=== PATIENT | male | born 1965 | race Caucasian/White ===

== ENCOUNTER 2019-05-14 17:31 | Emergency (ER) | payer OTHER ==
[~2019-05-14] VITALS: Ht 172.7 cm; Wt 90.7 kg
[~2019-05-14 17:31] MED LIST: DILAUDID4 MG PO; GABAPENTIN300 MG PO; LISINOPRIL-HCT1 EACH PO; METOPROLOL SUCC50 MG PO; NEURAPTINE30 ML; OXYCODONE HCL5 MG PO; PERCOCET 5-3251 EACH PO; ZOFRAN4 MG PO
--- OUTSIDE RECORDS SUMMARY | 2019-05-14 17:34 | XMS ---
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 EDustin VISIT COUNT (12 MO.) 2 SHERLYN Chen TOTAL 2 NOTE: Visits indicate total known visits. ED/UCC VISIT TRACKING (12 MO.) 05/14/2019 17:32 [facility] [place] TYPE: Emergency COMPLAINT: - SOB 04/13/2019 23:10 [facility] [place] TYPE: Emergency COMPLAINT: - ANKLE PAIN/INJURY DIAGNOSES: - Overexertion from prolonged static or awkward postures, initial encounter - Other chcf (current) drug therapy - Allergy status to sulfonamides status - Nicotine dependence, unspecified, uncomplicated - Allergy status to other antibiotic agents status - Pain in right ankle and joints of right foot - Displaced trimalleolar fracture of right lower leg, initial encounter for closed fracture - Essential (primary) hypertension INPATIENT VISIT TRACKING (12 MO.) No inpatient visits to display in this time frame [email or web address]
[2019-05-14] MEDS ORDERED: LEVOFLOXACIN500 MG PO (17:49)
--- NOTE | 2019-05-15 12:48 | EKG ---
[facility] [address] [place] [address] Signed Normal sinus rhythm with sinus arrhythmia Moderate voltage criteria for LVH, may be normal variant Borderline ECG When compared with ECG of 18-APR-2019 09:32, No significant change was found Confirmed by CONSUELO HARVEY MD ([id number]) on 05/15/2019 12:48:36 PM Electronically Signed By: CONSUELO HARVEY MD 05/15/19 1248 PATIENT NAME: SILVA KUMAR Electrocardiogram DATE OF : 61 PHYSICIAN: CONSUELO HARVEY MD REPORT #: [id number] REPORT IS CONFIDENTIAL AND NOT TO BE RELEASED WITHOUT AUTHORIZATION
== END 2019-05-14 22:08 | disposition home or self-care (01) ==
LOC: ED 17:31
DX: R06.02 Shortness of breath (principal); I10 Essential (primary) hypertension; Z87.891 Personal history of nicotine dependence; Z88.1 Allergy status to other antibiotic agents; Z88.2 Allergy status to sulfonamides; Z79.899 Other long term (current) drug therapy
CPT/HCPCS: 71045; 71260; 80053; 83735; 84484; 85025; 85379; 93005; 93010; 93225; 93226; 93227; 99285-25; J2060; Q9967

== ENCOUNTER 2024-06-02 10:57 | Emergency (ER) | payer OTHER ==
[~2024-06-02] VITALS: Ht 172.7 cm; Wt 86.8 kg
[~2024-06-02 10:57] MED LIST changes: +LEVOFLOXACIN500 MG PO
[2024-06-02 11:43] LABS: BASOPHILS 0.4 % (0-2); EOSINOPHILS 0.4 % (0-6); HEMATOCRIT 44.7 % (35.0-50.0); HEMOGLOBIN 15.6 g/dL (12.0-18.0); LYMPHOCYTES 10.5 % (24-44); MCH 30.7 (27-36); MCV 87.7 fl (81-99); MONOCYTES 8.2 % (0-12); NEUTROPHILS 80.5 % (39-80); PLATELET COUNT 194 K/uL (140-440); RBC 5.09 M/ul (4.3-5.7); RDW 12.8 (10.5-15.0)
[2024-06-02] MEDS ORDERED: HYDROmorphone HCL 1 MG/ML SYR IV ONE (11:45)
[2024-06-02] MEDS ORDERED: SODIUM CHLORIDE 0.9% 1,000 ML IV ONE (11:45)
[2024-06-02] MEDS ORDERED: ondansetron HCL 4 MG/2 ML VIAL IV ONE (11:45)
[2024-06-02 11:57] LABS: ALBUMIN/GLOBULIN RATIO 1.11 (1.1-2.4); BILIRUBIN, TOTAL 1.9 ng/dL (0.2-1.0); BUN/CREATININE RATIO 8.33 (6.0-28.6); CALCIUM 9.3 mg/dL (8.5-10.1); CREATININE, SERUM 1.2 mg/dL (0.70-1.30); PROTEIN, TOTAL 7.6 g/dL (6.4-8.2)
[2024-06-02] MEDS ORDERED: KETOROLAC TROMETHAMINE 30 MG/ML VIAL IV ONE (12:45)
[2024-06-02] MEDS ORDERED: AMOXICILLIN/CLAVULANATE K 875 MG TAB PO ONE (13:30)
[2024-06-02] MEDS ORDERED: OXYCODONE/APAP 5/325 TAB PO ONE (13:30)
[2024-06-02] MEDS ORDERED: PERCOCET 5-3251 EACH PO (14:00)
[2024-06-02] MEDS ORDERED: AMOX TR-K CLV1 EAC1 PO (14:00)
[2024-06-02] MEDS ORDERED: ONDANSETRON ODT4 MG PO (14:00)
[2024-06-02 14:13] VITALS: BP 156/103
== END 2024-06-02 14:14 | disposition home or self-care (01) ==
LOC: ED 10:57
PROVIDERS: Emergency Medicine
DX: K57.32 Diverticulitis of large intestine without perforation or abscess without bleeding (principal); I10 Essential (primary) hypertension; Z88.8 Allergy status to other drugs, medicaments and biological substances; Z87.891 Personal history of nicotine dependence
CPT/HCPCS: 74176; 80053; 83690; 85025; 96374; 96375; 99284-25; J1170; J1885; J2405; J7030